=== PATIENT | male | born 1995 | race African-American/Black ===

== ENCOUNTER 2022-05-23 11:31 | Emergency (ER) | payer OTHER | END 2022-05-23 13:57 | disposition home or self-care (01) | LOC: CSHERS 11:31 | DX: J02.9 Acute pharyngitis, unspecified (principal); I10 Essential (primary) hypertension | CPT/HCPCS: 87081; 87430; 99283 ==

== ENCOUNTER 2022-05-31 07:13 | Emergency (ER) | payer OTHER | END 2022-05-31 08:14 | disposition home or self-care (01) | LOC: CSHERS 07:13 | DX: S93.402A Sprain of unspecified ligament of left ankle, initial encounter (principal); X50.9XXA Other and unspecified overexertion or strenuous movements or postures, initial encounter ==

== ENCOUNTER 2022-07-04 11:09 | Emergency (ER) | payer OTHER ==
[2022-07-04] MEDS ORDERED: Ibuprofen 200 MG TAB ONE (16:47)
== END 2022-07-04 16:48 | disposition home or self-care (01) ==
LOC: CSHERS 11:09
DX: S90.851A Superficial foreign body, right foot, initial encounter (principal); W45.8XXA Other foreign body or object entering through skin, initial encounter

== ENCOUNTER 2022-12-10 12:03 | Emergency (ER) | payer OTHER ==
[2022-12-10] MEDS ORDERED: Ketorolac Tromethamine 30 MG/ML VIAL ONE (12:54)
== END 2022-12-10 13:00 | disposition home or self-care (01) ==
LOC: CSHERS 12:03
DX: K02.9 Dental caries, unspecified (principal); F17.210 Nicotine dependence, cigarettes, uncomplicated
CPT/HCPCS: 96372; 99282; J1885

== ENCOUNTER 2023-02-13 15:31 | Emergency (ER) | payer OTHER | END 2023-02-13 17:00 | disposition home or self-care (01) | LOC: CSHERS 15:31 | DX: S46.912A Strain of unspecified muscle, fascia and tendon at shoulder and upper arm level, left arm, initial encounter (principal); X50.1XXA Overexertion from prolonged static or awkward postures, initial encounter; F17.210 Nicotine dependence, cigarettes, uncomplicated | CPT/HCPCS: 99283 ==

== ENCOUNTER 2023-02-15 18:38 | Emergency (ER) | payer OTHER ==
[2023-02-15] MEDS ORDERED: predniSONE 20 MG TAB ONE (21:33)
[2023-02-15] MEDS ORDERED: Ketorolac Tromethamine 30 MG/ML VIAL ONE (21:33)
== END 2023-02-15 21:48 | disposition home or self-care (01) ==
LOC: CSHERS 18:38
DX: S46.912A Strain of unspecified muscle, fascia and tendon at shoulder and upper arm level, left arm, initial encounter (principal); X50.0XXA Overexertion from strenuous movement or load, initial encounter
CPT/HCPCS: 96372; 99283; J1885; J7512

== ENCOUNTER 2023-04-01 15:54 | Emergency (ER) | payer OTHER | END 2023-04-01 17:25 | disposition home or self-care (01) | LOC: CSHERS 15:54 | DX: M25.512 Pain in left shoulder (principal); F17.210 Nicotine dependence, cigarettes, uncomplicated | CPT/HCPCS: 99283 ==

== ENCOUNTER 2025-07-08 21:04 | Emergency (ER) | payer OTHER ==
[2025-07-08 21:54] LABS: Glucose, Urine (Dipstick) Normal (Negative); Leukocyte 100 (Negative); Protein, Urine (Dipstick) 15 mg/dl (Neg-Trace); Specific Gravity, Urine 1.020 (1.005-1.030)
[2025-07-08 22:17] LABS: Bacteria/HPF None Seen HPF (None Seen); CAUTI Indications for Culture Pelvic or flank pain; RBC/HPF 0-3 HPF (0-3); WBC/HPF 0-3 HPF (0-3)
[2025-07-08 22:19] LABS: Urine Culture Reflex No No
[2025-07-08 22:44] LABS: #Basophils 0.03 10x3/uL (0.0-0.2); #Eosinophils 0.17 10x3/uL (0.0-0.5); #Monocytes 0.65 10x3/uL (0.0-1.1); #Neutrophils 7.45 10x3/uL (1.5-8.4); %Basophils 0.3 % (0.0-2.0); %Eosinophils 1.5 % (0.0-6.0); %Lymphocytes 26.6 % (18.0-47.0); %Monocytes 5.7 % (0.0-10.0); %Neutrophils 65.1 % (40.0-75.0); Hematocrit 41.0 % (38.8-50.0); Hemoglobin 13.8 g/dL (13.5-17.5); Mean Corpuscular Hemoglobin 29.1 pg (27.0-33.0); Mean Corpuscular Volume 86.3 fL (81.2-95.1); Platelet Count 430 10x3/uL (150-450); Red Blood Cell (RBC) Count 4.75 10x6/uL (4.32-5.72); White Blood Cell (WBC) Count 11.43 10x3/uL (3.5-10.5)
[2025-07-08 23:02] LABS: ALT (SGPT) 26 U/L (Less than 45); AST (SGOT) 24 U/L (11-34); Albumin 3.5 g/dL (3.1-4.5); Alkaline Phosphatase 87 U/L (40-110); Anion Gap 13 mmol/L (10-20); BUN (Urea Nitrogen) 16 mg/dL (8.9-20.6); Bilirubin, Total 0.1 mg/dL (0.3-1.2); Calc. Creatinine Clearance 0 mL/min (70-130); Calcium 9.1 mg/dL (7.8-10.44); Carbon Dioxide 27 mmol/L (22-29); Chloride 101 mmol/L (98-107); Globulin 4.1 g/dL (2.4-3.5); Glucose 175 mg/dL (70-105); Lipase 67 U/L (8-78); Potassium 3.8 mmol/L (3.5-5.1); Sodium 137 mmol/L (136-145)
[2025-07-08] MEDS ORDERED: Ketorolac Tromethamine 30 MG (1 mL) VIAL ONE (23:07)
== END 2025-07-09 00:25 | disposition home or self-care (01) ==
LOC: CSHERS 21:04
DX: R10.A1 Flank pain, right side (principal); E86.0 Dehydration; R31.9 Hematuria, unspecified; F17.210 Nicotine dependence, cigarettes, uncomplicated; Z55.6 Problems related to health literacy
CPT/HCPCS: 74176; 80053; 81001; 83690; 85025; 93005; 96374; 96375; J1885; J2270

== ENCOUNTER 2025-07-16 11:34 | Emergency (ER) | payer OTHER ==
[2025-07-16 13:01] LABS: Glucose, Urine (Dipstick) Normal (Negative); Leukocyte 25 (Negative); Protein, Urine (Dipstick) 15 mg/dl (Neg-Trace); Specific Gravity, Urine 1.015 (1.005-1.030)
[2025-07-16 13:11] LABS: CAUTI Indications for Culture Pelvic or flank pain; RBC/HPF 0-3 HPF (0-3); WBC/HPF 0-3 HPF (0-3)
[2025-07-16 13:12] LABS: Mucous/LPF Rare LPF (<2+); Urine Culture Reflex No No
[2025-07-16] MEDS ORDERED: Ketorolac Tromethamine 30 MG (1 mL) VIAL ONE (14:38)
== END 2025-07-16 15:01 | disposition home or self-care (01) ==
LOC: CSHERS 11:34
DX: R07.81 Pleurodynia (principal); R31.9 Hematuria, unspecified; F17.210 Nicotine dependence, cigarettes, uncomplicated
CPT/HCPCS: 71046; 81001; 93005; 96372; J1885